=== PATIENT | male | born 1990 | race African-American/Black ===

== ENCOUNTER 2016-11-06 15:06 | Emergency (ER) | payer SELFPAY ==
--- NOTE | 2016-11-06 15:32 | ER Document Report ---
ED Medical Screen (RME) - General Stated Complaint: GROIN PAIN Mode of Arrival: Ambulatory Information source: Patient Notes: Patient presents to the emergency department with hematuria this morning. Also reports groin pain for the past 2 weeks possible hernia. I have greeted and performed a rapid initial assessment of this patient. A comprehensive ED assessment and evaluation of the patient, analysis of test results and completion of the medical decision making process will be conducted by additional ED providers. - Related Data Allergies/Adverse Reactions: No Known Allergies Allergy (Unverified 11/06/16 15:30) Physical Exam - Vital signs Vitals: Temp Pulse Resp BP Pulse Ox 99.0 F 71 20 100/53 L 97 11/06/16 15:21 11/06/16 15:21 11/06/16 15:21 11/06/16 15:21 11/06/16 15:21 Course - Vital Signs Vital signs: Temp Pulse Resp BP Pulse Ox 99.0 F 71 20 100/53 L 97 11/06/16 15:21 11/06/16 15:21 11/06/16 15:21 11/06/16 15:21 11/06/16 15:21
[2016-11-06 19:12] VITALS: BP 103/61
[2016-11-06 19:49] LABS: AMORPHOUS SEDIMENT,URINE TRACE /HPF; APPEARANCE,URINE CLOUDY; BILIRUBIN,URINE NEGATIVE (NEGATIVE); GLUCOSE, URINE NEGATIVE (NEGATIVE); KETONES,URINE NEGATIVE (NEGATIVE); LEUKOCYTE ESTERASE,URINE LARGE (NEGATIVE); NITRITE,URINE NEGATIVE (NEGATIVE); PROTEIN,URINE 30 mg/dL (NEGATIVE); URINE SPECIFIC GRAVITY 1.024
[2016-11-06] MEDS ORDERED: CEFTRIAXONE INJ 250 MG VIAL IM ONE (20:16)
[2016-11-06] MEDS ORDERED: AZITHROMYCIN 250 MG TABLET PO ONE (20:16)
[2016-11-06] MEDS ORDERED: CEPHALEXIN 500 MG CAPSULE PO ONE (20:16)
[2016-11-06] MEDS ORDERED: DOXYCYCLINE HYCLATE 100 MG TABLET PO ONE (20:18)
--- NOTE | 2016-11-06 20:20 | ER Document Report ---
ED GI/ - General Chief Complaint: Groin Pain Stated Complaint: GROIN PAIN Time seen by provider: 20:17 Mode of Arrival: Ambulatory Information source: Patient TRAVEL OUTSIDE OF THE [place] IN LAST 30 DAYS: No - HPI Patient complains to provider of: Dysuria, Groin pain, Hematuria Onset: Other - 2 weeks Timing/Duration: Persistent, Worse Quality of pain: Burning, Pressure Severity at maximum: Moderate Severity in ED: Moderate Pain Level: 3 Location: Suprapubic Associated symptoms: Dysuria, Hematuria Exacerbated by: Denies Relieved by: Denies Similar symptoms previously: No Recently seen / treated by doctor: No Notes: 11/07/16 01:04 Patient is a 26-year-old male who presents to the emergency room complaining of painful urination with hematuria and swelling to the left groin that's been going on for the past 2 weeks, states it's become more painful over the past 2 days, he denies a history of similar symptoms previously, denies fever or chills , no nausea, vomiting or diarrhea, he does report having a new sexual partner but denies any penile discharge - Related Data Allergies/Adverse Reactions: No Known Allergies Allergy (Unverified 11/06/16 15:30) Past Medical History - General Information source: Patient - Social History Smoking Status: Current Every Day Smoker Chew tobacco use (# tins/day): No Frequency of alcohol use: None Drug Abuse: Marijuana Family History: Reviewed & Not Pertinent Patient has suicidal ideation: No Patient has homicidal ideation: No Renal/ Medical History: Denies: Hx Peritoneal Dialysis Past Surgical History: Reports: Hx Orthopedic Surgery - left elbow - Immunizations Hx Diphtheria, Pertussis, Tetanus Vaccination: No Review of Systems - Review of Systems Constitutional: No symptoms reported EENT: No symptoms reported Cardiovascular: No symptoms reported Respiratory: No symptoms reported Gastrointestinal: See HPI Genitourinary: See HPI Male Genitourinary: See HPI Musculoskeletal: No symptoms reported Skin: No symptoms reported Hematologic/Lymphatic: No symptoms reported Neurological/Psychological: No symptoms reported -: Yes All other systems reviewed and negative Physical Exam - Vital signs Vitals: Temp Pulse Resp BP Pulse Ox 99.0 F 71 20 100/53 L 97 11/06/16 15:21 11/06/16 15:21 11/06/16 15:21 11/06/16 15:21 11/06/16 15:21 Interpretation: Normal - General General appearance: Appears well, Alert - HEENT Head: Normocephalic, Atraumatic Eyes: Normal Pupils: PERRL - Respiratory Respiratory status: No respiratory distress Chest status: Nontender Breath sounds: Normal Chest palpation: Normal - Cardiovascular Rhythm: Regular Heart sounds: Normal auscultation Murmur: No - Abdominal Inspection: Normal Distension: No distension Bowel sounds: Normal Tenderness: Nontender Organomegaly: No organomegaly - Genitourinary Notes: Patient has 2 firm, tender, swollen lymph nodes in the left inguinal area, no open wounds or lesions - Back Back: Normal, Nontender - Extremities General upper extremity: Normal inspection, Nontender, Normal color, Normal ROM , Normal temperature General lower extremity: Normal inspection, Nontender, Normal color, Normal ROM , Normal temperature, Normal weight bearing. No: Fatmata's sign - Neurological Neuro grossly intact: Yes Cognition: Normal Orientation: AAOx4 Shyann Coma Scale Eye Opening: Spontaneous Conway Coma Scale Verbal: Oriented Shyann Coma Scale Motor: Obeys Commands Shyann Coma Scale Total: 15 Speech: Normal Motor strength normal: LUE, RUE, LLE, RLE Sensory: Normal - Psychological Associated symptoms: Normal affect, Normal mood - Skin Skin Temperature: Warm Skin Moisture: Dry Skin Color: Normal Course - Re-evaluation Re-evalutation: 11/07/16 01:06 Laboratory evaluation results were discussed with patient at bedside which are consistent with urinary tract infection, patient does confirm that he has a new sexual partner, therefore chlamydia and gonorrhea testing was ordered, however patient expressed displeasure at being the emergency room for quite some time prior to my evaluation, stating that he wished to leave, he was agreeable to receiving treatment for chlamydia and gonorrhea and having the call him with results at a later time this evening, therefore he was given Rocephin and azithromycin in the emergency room as well as a prescription for doxycycline, and provided me with a phone number I could call to give him his test results once obtained I placed a call to patient at the number he provided earlier in the day to report his test results which are negative - Vital Signs Vital signs: Temp Pulse Resp BP Pulse Ox 99.0 F 55 L 16 103/61 99 11/06/16 15:21 11/06/16 19:07 11/06/16 19:07 11/06/16 19:07 11/06/16 19:07 - Laboratory Laboratory results interpreted by me: 11/06/16 19:08 Urine Protein 30 H Urine Blood MODERATE H Urine Urobilinogen 2.0 H Ur Leukocyte Esterase LARGE H Discharge - Discharge Clinical Impression: Urinary tract infection Qualifiers: Urinary tract infection type: site unspecified Hematuria presence: with hematuria Qualified Code(s): N39.0 - Urinary tract infection, site not specified Condition: Stable Disposition: HOME, SELF-CARE Instructions: Urinary Tract Infection ([facility]) Additional Instructions: Follow up with your primary care provider in one to 2 days. Return to the emergency room immediately if symptoms worsen or any additional concerns. Prescriptions: Doxycycline Hyclate 100 mg PO BID #20 tablet.
[2016-11-06] MEDS ORDERED: LIDOCAINE 1% INJ-PF (10 MG/ML) 30 ML SDV ONE (20:30)
[2016-11-06 21:39] LABS: CHLAM PCR NOT DETECTED (NOT DETECT)
== END 2016-11-06 20:45 | disposition home or self-care (01) ==
LOC: ER 15:06
DX: N39.0 Urinary tract infection, site not specified (principal); R10.30 Lower abdominal pain, unspecified; R30.0 Dysuria; R31.9 Hematuria, unspecified; R59.0 Localized enlarged lymph nodes; F17.200 Nicotine dependence, unspecified, uncomplicated
CPT/HCPCS: 99284; 96372; 81001; 87491; 87591; 76857; J3490; J0696